=== PATIENT | female | born 1950 | race Caucasian/White ===

== ENCOUNTER → 2017-02-13 | Outpatient (CLI) | payer OTHER ==
[~2017-02-13] MED LIST: ANT25 PO; ASPI81TA21 PO; BND25X PO; DVN80 PO; HYDC25 PO; LRT5 PO; METO25TA3 PO; NORT25CA PO; OMEP40CA PO; SERT100T PO; SIMV40TA2 PO; SNG10 PO; TEMA30CA4 PO; TRAM-10 PO
== END | disposition home or self-care (01) ==
LOC: C.LABMFLN 15:23
PROVIDERS: ATTEND Family Medicine
DX: R19.7 Diarrhea, unspecified (principal)

== ENCOUNTER → 2017-02-14 | Outpatient (CLI) | payer OTHER | END | disposition home or self-care (01) | LOC: C.LABMFLN 08:03 | PROVIDERS: ATTEND Family Medicine | DX: R19.7 Diarrhea, unspecified (principal) ==

== ENCOUNTER → 2017-02-26 | Outpatient (CLI) | payer OTHER ==
--- NOTE | 2017-02-26 14:13 | DIAGNOSTIC IMAGING REPORT ---
LUMBAR SPINE W/O CONTRAST CLINICAL HISTORY: 66 years-old Female presenting with LEFT LUMBOSACRAL RADICULOPATHY, pain radiating down both legs to the knees for many years starting in 2000, lower back pain. TECHNIQUE: Multisequence, multiplanar MR imaging of the lumbar spine was performed without the use of intravenous contrast. IV contrast: None. COMPARISON: Correlation made to plain radiographs from 2015. FINDINGS: Vertebral bodies maintain normal height and alignment. Well-defined T2 hyperintense, T1 hyperintense, fat-containing lesion in the L1 and L3 vertebral bodies consistent with benign hemangiomas. Mild apparent edema in the pedicles of L4, nonspecific without associated inflammatory change in the paraspinal soft tissues and likely degenerative in etiology. Bone marrow signal intensity otherwise normal. Intervertebral disc spaces preserved. Mild degenerative change noted in the lower lumbar spine with facet arthropathy and mild ligamentum flavum thickening. This results in minimal left neural foraminal narrowing at L3-4 and minimal bilateral narrowing at L4-5. No spinal canal narrowing. Spinal cord and cauda equina grossly normal. The terminus of the spinal cord is not well visualized. Nonspecific subcutaneous edema in the posterior soft tissues of the upper lumbar spine. Few benign-appearing lymph nodes noted in the periaortic region. Remaining soft tissues otherwise unremarkable. IMPRESSION: Mild facet arthropathy in the lower lumbar spine with minimal neural foraminal narrowing. Electronically signed by: Delroy Jackson M.D. 02/26/2017 2:11 PM Dictated Date/Time: 02/26/2017 2:05 PM
== END | disposition home or self-care (01) ==
LOC: C.OPENMRI 12:55
PROVIDERS: ATTEND Physical Medicine & Rehabilitation
DX: M54.17 Radiculopathy, lumbosacral region (principal)

== ENCOUNTER → 2017-05-20 | Outpatient (CLI) | payer OTHER | END | disposition home or self-care (01) | LOC: C.RDSM 13:27 | PROVIDERS: ATTEND Physical Medicine & Rehabilitation Sports Medicine | DX: M25.561 Pain in right knee (principal) ==

== ENCOUNTER 2021-05-30 16:53 | Observation (INO) ==
--- NOTE | 2021-05-30 18:28 | Emergency Department Note ---
Impression & Plan Upper abdominal pain ED Provider Note NAME: ANALISA LAWRENCE AGE: 70 SEX: F : 1950 ARRIVES VIA: Ambulance INFORMANT: Patient, ED PROVIDER(S): Dallin Mayfield MD Chief Complaint: Fogginess, abdominal pain HPI: Patient does present with feelings that she is not quite there almost the spaciness or fogginess but denies any lightheadedness. The patient denies vertiginous symptoms. No hearing loss. The patient also does have some upper abdominal pain. The patient states that this has been somewhat chronic but acutely worse in nature. The patient did have a prior history of biliary stent status post removal several months ago with Dr. Baird. Patient denies any fevers or chills. The patient is vaccinated for Covid. Upper abdominal pain is achy and nonradiating. No recent falls or trauma. Patient did not take anything for her symptoms at home. Patient has had some nausea but without vomiting. No diarrhea. Patient denies alcohol tobacco or drug use. ROS: See HPI for pertinent positives and negatives. A total of 10 systems were reviewed and otherwise negative. Past medical history: See below Surgical history: See below Social history: See below Physical Exam: GENERAL: NAD, [wearing a mask,] non-toxic. EYE EXAM: Normal conjunctiva. PERRL, no anisocoria and EOM's grossly intact w/o pain. NECK: Supple, no nuchal rigidity, no adenopathy, non-tender. No signs of meningismus. No carotid bruits appreciated. LUNGS: Clear to auscultation. Normal chest wall mechanics. HEART: NSR, no MRG. ABDOMEN: Abdomen soft, mild diffuse discomfort with greater prominence in the upper abdomen, not peritonitic normo-active bowel sounds, no masses, no rebound or guarding. BACK: No CVA TTP. SKIN: No rashes and no bruising. UPPER EXTREMITIES: Upper extremities are grossly normal. LOWER EXTREMITIES: Grossly normal, no edema. NEURO EXAM: A&O x3, cranial nerves II-XII grossly intact, normal speech, moves all 4 extremities on command w/o issue. Differential diagnoses: Benign positional vertigo, dehydration, hypovolemia, anemia, tumor, infection, hypoglycemia, electrolyte abnormalities, cardiac sources, intracerebral event, toxicologic, neurologic, as well as other pathologies. Course: Patient was seen and evaluated the bedside. Full history physical exam was performed. Imaging Studies: See Below [Cardiac monitoring: An order was placed for continuous cardiac monitoring. The monitor shows a rate of 75 with sinus rhythm.] MDM: Patient was seen due to concern for fogginess as well as abdominal pain. Blood work was obtained. Patient had a mild white count of 12 with a normal H&H. Kidney function is unremarkable. Mild elevation in AST. Lipase is normal. Covid negative. CT did show mild hepatic duct dilatation with some rim enhancement or cholangitis cannot be ruled out. Patient clinically is not confused jaundiced but I did speak with the on-call ceramic tile mechanic Dr. Ayon is that the patient may potentially go home versus inpatient ops. I did discuss this with the patient the patient for to stay for observation and treatment. I did speak with the on-call hospitalist Dr. Red the patient was admitted to the medicine service. 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) Atypical chest pain (04/05/11) Cardiac murmur Chronic cough Deep vein thrombosis R ARM-FROM IV STICK-ON XARELTO FOR 6 MONTHS OR TILL BLOOD CLOT GONE PER PT Diverticular disease REED (dyspnea on exertion) Exposure to mold Fatigue GERD (gastroesophageal reflux disease) Hyperlipidemia Hypertension Hypothyroidism Kidney stones Morbid obesity Osteoarthritis Restless leg syndrome Sleep apnea CPAP-CAN'T TOLERATE DEVICE SOB (shortness of breath) Wheezing Surgical History H/O Achilles tendon repair LEFT H/O neck surgery LYMPH NODE EXCISION-BENIGN H/O wrist surgery NERVE REPAIR-RIGHT History of anesthesia reaction WITH EGD [facility] 02/2018-LOW OXYGEN SATURATION-KEPT LONGER POST OP HX LARYNGEAL SPASMS History of carpal tunnel release R/L History of colonoscopy History of esophagogastroduodenoscopy (EGD) History of tonsillectomy History of tooth extraction Hx of cardiac cath 2012 [facility] 5 CLOTS REMOVED PER PT-NO STENTS Family History Mother Diabetes Father Myocardial infarction Sister Myocardial infarction Social History Smoking Status: Former smoker Tobacco Type: Cigarettes Second Hand Exposure: Yes (FAMILY); Hx Alcohol Use: No Hx Substance Use: No Preferred Language: Czech Communication Ability: Effective Hand Cigar Making Supervisor Required: Voice Beliefs That Will Affect Care: None Current Living Situation: Alone Feels Safe at Home: Yes Assistive Devices: None Allergies Allergies Allergy/AdvReac Type Severity Reaction Status Date / Time Penicillins Allergy Intermediate Hives Verified 05/30/21 21:53 Sulfa (Sulfonamide Allergy Intermediate RASH Verified 05/30/21 21:53 Antibiotics) tetanus toxoid, adsorbed Allergy Intermediate UNKNOWN Verified 05/30/21 21:53 blueberry Allergy Mild RASH Verified 05/30/21 21:53 EATING BLUEBERRIES adhesive Allergy Unknown SKIN Verified 05/30/21 21:53 IRRITATION EKG ELECTRODES celecoxib [From Celebrex] Allergy Unknown STOAMCH Verified 05/30/21 21:53 PAIN Tetanus Vaccines and Toxoid Allergy Unknown Unknown Verified 05/30/21 21:53 Tetracyclines Allergy Unknown STOMACH Verified 05/30/21 21:53 PAIN gabapentin AdvReac Severe Hallucinate Verified 05/30/21 21:53 s doxycycline AdvReac Intermediate NAUSEA Verified 05/30/21 21:53 acetaminophen [From Tylenol] AdvReac Unknown STOMACH Verified 05/30/21 21:53 PAINS enoxaparin [From Lovenox] AdvReac Unknown GENERIC Verified 05/30/21 21:53 FORM-MUSCLE ACHES NSAIDS (Non-Steroidal AdvReac Unknown Stomach Verified 05/30/21 21:53 Anti-Inflamma Problems Home Meds Home Medications Medication Instructions Recorded Confirmed pravastatin 80 mg tablet 80 mg PO HS 12/30/18 05/30/21 ropinirole 1 mg tablet 2 mg PO HS 12/30/18 05/30/21 rivaroxaban 20 mg tablet (Xarelto) 20 mg PO HS 08/06/19 05/30/21 Portable Oxygen ea 02/27/21 05/15/21 oxycodone 10 mg tablet 10 mg PO TID PRN tab 05/01/21 05/30/21 levothyroxine 137 mcg tablet 137 mcg PO QAM 05/30/21 05/30/21 pramipexole 0.125 mg tablet 0.125 mg PO BID 05/30/21 05/30/21 verapamil 180 mg 24 hr 360 mg PO HS 05/30/21 05/30/21 capsule,extended release Previous Rx's Medication Instructions Recorded isosorbide mononitrate 60 mg 60 mg PO QAM #90 tab 04/06/20 tablet,extended release 24 hr nitroglycerin 0.4 mg sublingual 0.4 mg SUBLINGUAL Q5M PRN #25 tab 04/06/20 tablet Portable Oxygen #1 ea 04/25/20 Incentive Spirometer #1 ea 12/07/20 albuterol sulfate 90 mcg/actuation 2 inh INHALATION QID PRN #18 g 12/07/20 aerosol inhaler fluticasone propionate 115 2 inh INHALATION BID #12 g 12/07/20 mcg-salmeterol 21 mcg/actuation HFA inhaler (Advair HFA) Over Night Pulse OX #1 ea 02/27/21 losartan 100 mg tablet 50 mg PO HS #90 tab 02/27/21 metoprolol succinate 25 mg 12.5 mg PO DAILY #45 tab 03/26/21 tablet,extended release 24 hr hydrochlorothiazide 25 mg tablet 50 mg PO DAILY #180 tab 05/15/21 Results & Data (ED) Vital Signs Vital Signs - 24 hr 05/30/21 17:33 05/30/21 18:49 05/30/21 18:51 Temperature 36.7 C Temperature Source Skin Pulse Rate 67 Pulse Rate [Apical] 63 Pulse Rate from SpO2 Sensor Pulse Rhythm Regular Pulse Strength Normal Respiratory Rate 20 16 Respiratory Effort / Characteristics Non-Labored Spontaneous Respiratory Depth Normal Respiratory Pattern Regular Blood Pressure 159/62 H Blood Pressure [Left Arm] 145/95 H Blood Pressure Mean 94 Blood Pressure Mean [Left Arm] 111 Pulse Oximetry 96 97 Oxygen Delivery Method Room Air Room Air Room Air Sepsis Recent Fever Within 48 Hours No Sepsis New/Unexplained Change in Mental Status N/A Sepsis Action Taken by Nursing No Action Required 05/30/21 18:54 05/30/21 19:00 05/30/21 20:00 Temperature Temperature Source Pulse Rate 58 L 57 L 61 Pulse Rate [Apical] Pulse Rate from SpO2 Sensor 58 L 57 L 60 Pulse Rhythm Pulse Strength Respiratory Rate 19 28 H 22 Respiratory Effort / Characteristics Respiratory Depth Respiratory Pattern Blood Pressure 136/73 167/74 H Blood Pressure [Left Arm] Blood Pressure Mean 94 105 Blood Pressure Mean [Left Arm] Pulse Oximetry 94 95 94 Oxygen Delivery Method Sepsis Recent Fever Within 48 Hours Sepsis New/Unexplained Change in Mental Status Sepsis Action Taken by Nursing 05/30/21 21:00 05/30/21 22:00 05/30/21 23:00 Temperature Temperature Source Pulse Rate 64 Pulse Rate [Apical] Pulse Rate from SpO2 Sensor 54 L 57 L 64 Pulse Rhythm Pulse Strength Respiratory Rate 16 23 Respiratory Effort / Characteristics Respiratory Depth Respiratory Pattern Blood Pressure 129/71 184/72 H 169/59 H Blood Pressure [Left Arm] Blood Pressure Mean 90 109 95 Blood Pressure Mean [Left Arm] Pulse Oximetry 92 94 94 Oxygen Delivery Method Sepsis Recent Fever Within 48 Hours Sepsis New/Unexplained Change in Mental Status Sepsis Action Taken by [facility] Medications Current Medication List: was personally reviewed by me Laboratory Data Attestation: I reviewed the patient's lab results. Result diagrams: 05/31/21 05:37 05/31/21 05:37 Lab Results 05/30/21 05/30/21 05/30/21 Range/Units 18:48 18:48 19:40 WBC 12.34 H (4.8-10.8) K/uL RBC 4.44 (4.2-5.4) M/uL Hgb 13.5 (12.0-16.0) g/dL Hct 40.9 (37-47) % MCV 92.1 (80-100) fL MCH 30.4 (25-34) pg MCHC 33.0 (32-36) g/dL RDW Std Deviation 46.6 H (36.4-46.3) fL RDW Coeff of Liza 13.8 (11.5-14.5) % Plt Count 329 (130-400) K/uL MPV 9.5 (7.4-10.4) fL Immature Gran % (Auto) 0.2 % Neut % (Auto) 63.2 % Lymph % (Auto) 27.0 % Falls % (Auto) 8.1 % Eos % (Auto) 1.3 % Baso % (Auto) 0.2 % Neut # (Auto) 7.80 H (1.4-6.5) K/uL Lymph # (Auto) 3.33 (1.2-3.4) K/uL Falls # (Auto) 1.00 H (0.11-0.59) K/uL Eos # (Auto) 0.16 (0-0.5) K/uL Baso # (Auto) 0.02 (0-0.2) K/uL Immature Gran # (Auto) 0.03 H (0.00-0.02) K/uL Sodium 138 (136-145) mmol/L Potassium 4.0 (3.5-5.1) mmol/L Chloride 106 (98-107) mmol/L Carbon Dioxide 26 (21-32) mmol/L Anion Gap 5.0 (3-11) BUN 17 (7-18) mg/dl Creatinine 0.86 (0.6-1.2) mg/dl Est Cr Clr Drug Dosing 68.6 ml/min Est GFR ( Amer) 80.5 ml/min Est GFR (Non-Af Amer) 69.4 ml/min BUN/Creatinine Ratio 20.3 H (10-20) Glucose 82 (70-99) mg/dl Calcium 8.8 (8.5-10.1) mg/dl Total Bilirubin 0.4 (0.2-1) mg/dl AST 76 H (15-37) U/L ALT 46 (12-78) U/L Alkaline Phosphatase 96 (45-117) U/L Total Protein 7.0 (6.4-8.2) gm/dl Albumin 3.0 L (3.4-5.0) gm/dl Globulin 4.0 (2.5-4.0) gm/dl Albumin/Globulin Ratio 0.8 L (0.9-2) Lipase 128 (73-393) U/L Administered Medications Discontinued Medications Aspirin (Aspirin 81 Mg Ectab) 81 mg PO QAM ANGELICA Stop: 06/30/21 08:59 Last Admin: 05/31/21 08:24 Dose: 81 mg Documented by: [id number] Sodium Chloride (Nss 1000ml) 1,000 mls @ 999 mls/hr IV .Q1H1M STA Stop: 05/30/21 19:39 Last Infusion: 05/30/21 21:00 Dose: 0 mls/hr Documented by: [id number] Admin: 05/30/21 18:48 Dose: 999 mls/hr Documented by: [id number] Prochlorperazine (Compazine) 2 mls @ 1 mls/min IV ONE ONE Stop: 05/30/21 19:49 Last Admin: 05/30/21 20:06 Dose: 1 mls/min Documented by: [id number] Lorazepam (Ativan) 0.5 mg in 1 mls @ 1 mls/min IV NOW STA Stop: 05/30/21 22:49 Last Admin: 05/30/21 23:16 Dose: Not Given Documented by: [id number] Potassium Chloride/Sodium Chloride (Normal Saline W/20 Meq Kcl) 20 meq in 1,000 mls @ 60 mls/hr IV .[id number] ANGELICA Stop: 05/31/21 18:36 Last Admin: 05/31/21 08:21 Dose: 60 mls/hr Documented by: [id number] Ioversol (Optiray 320 100ml) 93 ml IV ONCE ONE Stop: 05/30/21 20:19 Last Admin: 05/30/21 20:20 Dose: 93 ml Documented by: [id number] Ioversol (Optiray 320 125ml) 120 ml IV ONCE ONE Stop: 05/31/21 08:38 Last Admin: 05/31/21 08:37 Dose: 120 ml Documented by: [id number] Isosorbide Mononitrate (Isosorbide Falls Extended Rel 60 Mg Tabcr) 60 mg PO QAM ANGELICA Stop: 06/30/21 08:59 Last Admin: 05/31/21 08:23 Dose: 60 mg Documented by: [id number] Levothyroxine Sodium (Levothyroxine Sodium 137 Mcg Tablet) 137 mcg PO DAILYBB ANGELICA Stop: 06/30/21 06:29 Last Admin: 05/31/21 08:23 Dose: 137 mcg Documented by: [id number] Meclizine HCl (Meclizine Hcl 25 Mg Tab) 25 mg PO NOW STA Stop: 05/30/21 19:49 Last Admin: 05/30/21 20:06 Dose: 25 mg Documented by: [id number] Metoprolol Succinate (Metoprolol Succ 25mg Ext Rel Tab) 12.5 mg PO DAILY ANGELICA Stop: 06/30/21 08:59 Last Admin: 05/31/21 08:23 Dose: 12.5 mg Documented by: [id number] Ondansetron HCl (Ondansetron Inj 2 Mg/Ml 2 Ml Vial) 4 mg IV NOW STA Stop: 05/30/21 18:40 Last Admin: 05/30/21 18:48 Dose: 4 mg Documented by: [id number] Perflutren Lipid Microsphere (Perflutren Lipid Microsphere ([employer])) 2 ml IV ONCE ONE Stop: 05/31/21 07:14 Last Admin: 05/31/21 07:14 Dose: 2 ml Documented by: [id number] Pramipexole Dihydrochloride (Pramipexole Dihydrochlo 0.25 Mg Tab) 0.125 mg PO BID ANGELICA Stop: 06/30/21 04:59 Last Admin: 05/31/21 08:24 Dose: 0.125 mg Documented by: [id number] Imaging Data Radiologist's Impression: Abdomen/Pelvis CT 05/30/21 18:[address] WITH IV CONTRAST CT DOSE: 1389.28 mGy.cm HISTORY: Generalized abdominal pain; h/o biliary stent s/p removal TECHNIQUE: Multiaxial CT images of the abdomen and pelvis were performed following the use of intravenous contrast. A dose lowering technique was utilized adhering to the principles of ALARA. COMPARISON STUDY: Abdomen and pelvis CT 01/09/2018. FINDINGS: Stable 3 mm nodule within the left lower lobe. This is likely benign. The right lung base is clear. No pneumoperitoneum. No pneumatosis. No fractures within the visualized osseous structures. Mild skin thickening and subcutaneous trace edema within the lower pannus. The bladder, uterus, bilateral adnexa are within normal limits. No pelvic free fluid. Colonic diverticulosis. No evidence for acute diverticulitis. Normal appendix. No bowel wall thickening or obstruction. No retroperitoneal lymphadenopathy. Normal caliber abdominal aorta. No hepatic or splenic masses. The adrenal glands are unremarkable. There is a single enlarged periportal lymph node which remains unchanged. Therefore, this is likely benign. The main portal vein is patent. There are few punctate left renal calculi. No ureteral calculi. No hydronephrosis. The kidneys enhance normally. Prior cholecystectomy. Small amount of pneumobilia is present. The common hepatic duct is mildly dilated up to 12 mm. Mild enhancement within the common bile duct/common hepatic duct wall. IMPRESSION: 1. Mildly dilated common hepatic duct. This could be due to the patient's postcholecystectomy state. There is also mild enhancement of the wall of the common hepatic duct and common bile duct. This could be due to the history of recent stent removal. An ascending cholangitis could also have a similar appear ance in the appropriate clinical setting. 2. No bowel wall thickening or obstruction. 3. Normal appendix. 4. Colonic diverticulosis. No evidence for acute diverticulitis. 5. Left-sided nephrolithiasis. No ureteral stones. No hydronephrosis. ACT 112: Negative or not required by law. Electronically signed by: Shaan Schaefer M.D. 05/30/2021 8:[address] 05/30/21 18:[address] DOSE: 767.83 mGy.cm HISTORY: nausea, dizzy TECHNIQUE: Multiaxial CT images of the head were performed without the use of intravenous contrast. Automated exposure control was utilized for this study. A dose lowering technique was utilized adhering to the principles of ALARA. Comparison: None. Findings: The paranasal sinuses and mastoid air cells are clear. The calvarium and skull base are intact. The ventricles and sulci are within normal limits. There is no mass, hematoma, midline shift, or acute infarct. Impression: No acute intracranial abnormality. ACT 112: Negative or not required by law. Electronically signed by: Shaan Schaefer M.D. 05/30/2021 8:45 PM Discharge Plan Visit Data Chief Complaint: Dizziness Stated Complaint: dizziness, headache ED Provider: Dallin Mayfield Discharge Problem: Upper abdominal pain Patient Disposition: Admitted As Inpatient Discharge Instructions Interventions: ED Discharge Assessment Last Done: 05/31/21 01:53
[2021-05-30] MEDS ORDERED: ONDANSETRON INJ 2 MG/ML 2 ML VIAL IV STA (18:39)
[2021-05-30] MEDS ORDERED: SODIUM CHLORIDE 0.9% 1000ML 1,000 ML IV STA (18:39)
[2021-05-30 18:59] LABS: Basophils # (auto) 0.02 K/uL (0-0.2); Basophils % (auto) 0.2 %; Eosinophils # (auto) 0.16 K/uL (0-0.5); Eosinophils % (auto) 1.3 %; Hematocrit (blood only) 40.9 % (37-47); Hemoglobin 13.5 g/dL (12.0-16.0); Immature Granulocytes # (auto) 0.03 K/uL (0.00-0.02); Immature Granulocytes % (auto) 0.2 %; Lymphocytes # (auto) 3.33 K/uL (1.2-3.4); Mean Corpuscular Hemoglobin 30.4 pg (25-34); Mean Corpuscular Volume 92.1 fL (80-100); Mean Platelet Volume 9.5 fL (7.4-10.4); Monocytes % (auto) 8.1 %; Neutrophils % (auto) 63.2 %; Platelet Count 329 K/uL (130-400); RDW Coefficient of Variation 13.8 % (11.5-14.5); RDW Standard Deviation 46.6 fL (36.4-46.3); Red Blood Count 4.44 M/uL (4.2-5.4); White Blood Count 12.34 K/uL (4.8-10.8)
[2021-05-30 19:19] LABS: BUN Creatinine Ratio 20.3 (10-20); Calcium 8.8 mg/dl (8.5-10.1); Creatinine Clr Calc Pharmacy 68.6 ml/min; Est GFR (African American) 80.5 ml/min; Est GFR (Non-African American) 69.4 ml/min
[2021-05-30 19:39] LABS: Albumin Globulin Ratio 0.8 (0.9-2); Bilirubin,Total 0.4 mg/dl (0.2-1)
[2021-05-30] MEDS ORDERED: PROCHLORPERAZINE 2 ML IV ONE (19:48)
[2021-05-30] MEDS ORDERED: MECLIZINE HCL 25 MG TAB PO STA (19:48)
[2021-05-30] MEDS ORDERED: OPTIRAY 320 100ml IV ONE (20:18)
--- NOTE | 2021-05-30 20:46 | CT Scan Report ---
HEAD CT NONCONTRAST CT DOSE: 767.83 mGy.cm HISTORY: nausea, dizzy TECHNIQUE: Multiaxial CT images of the head were performed without the use of intravenous contrast. A utomated exposure control was utilized for this study. A dose lowering technique was utilized adheri ng to the principles of ALARA. Comparison: None. Findings: The paranasal sinuses and mastoid air cells are clear. The calvarium and skull base are int act. The ventricles and sulci are within normal limits. There is no mass, hematoma, midline shift, or acute infarct. Impression: No acute intracranial abnormality. ACT 112: Negative or not required by law. Electronically signed by: Shaan Schaefer M.D. 05/30/2021 8:45 PM
--- NOTE | 2021-05-30 21:00 | CT Scan Report ---
ABDOMEN AND PELVIS CT WITH IV CONTRAST CT DOSE: 1389.28 mGy.cm HISTORY: Generalized abdominal pain; h/o biliary stent s/p removal TECHNIQUE: Multiaxial CT images of the abdomen and pelvis were performed following the use of intrave nous contrast. A dose lowering technique was utilized adhering to the principles of ALARA. COMPARISON STUDY: Abdomen and pelvis CT 01/09/2018. FINDINGS: Stable 3 mm nodule within the left lower lobe. This is likely benign. The right lung base i s clear. No pneumoperitoneum. No pneumatosis. No fractures within the visualized osseous structures. Mild skin thickening and subcutaneous trace edema within the lower pannus. The bladder, uterus, bilat eral adnexa are within normal limits. No pelvic free fluid. Colonic diverticulosis. No evidence for a cute diverticulitis. Normal appendix. No bowel wall thickening or obstruction. No retroperitoneal lym phadenopathy. Normal caliber abdominal aorta. No hepatic or splenic masses. The adrenal glands are un remarkable. There is a single enlarged periportal lymph node which remains unchanged. Therefore, this is likely benign. The main portal vein is patent. There are few punctate left renal calculi. No uret eral calculi. No hydronephrosis. The kidneys enhance normally. Prior cholecystectomy. Small amount of pneumobilia is present. The common hepatic duct is mildly dilated up to 12 mm. Mild enhancement with in the common bile duct/common hepatic duct wall. IMPRESSION: 1. Mildly dilated common hepatic duct. This could be due to the patient's postcholecystectomy state. There is also mild enhancement of the wall of the common hepatic duct and common bile duct. This coul d be due to the history of recent stent removal. An ascending cholangitis could also have a similar a ppearance in the appropriate clinical setting. 2. No bowel wall thickening or obstruction. 3. Normal appendix. 4. Colonic diverticulosis. No evidence for acute diverticulitis. 5. Left-sided nephrolithiasis. No ureteral stones. No hydronephrosis. ACT 112: Negative or not required by law. Electronically signed by: Shaan Schaefer M.D. 05/30/2021 8:59 PM
[2021-05-30] MEDS ORDERED: LORazepam 0.5 MG/1 ML VIAL IV STA (22:48)
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
[2021-05-31] MEDS ORDERED: oxyCODONE HCL IR 5 MG TAB (IMMEDIATE RELEASE) PO PRN (00:08)
[2021-05-31] MEDS ORDERED: NSS + 20MEQ KCL 20 MEQ/1,000 ML BAG IV SCH (01:57)
[2021-05-31] MEDS ORDERED: ACETAMINOPHEN 325 MG TAB PO PRN (01:57)
[2021-05-31] MEDS ORDERED: ONDANSETRON INJ 2 MG/ML 2 ML VIAL IV PRN (01:57)
[2021-05-31] MEDS ORDERED: NITROGLYCERIN SL 0.4 MG/TAB TAB SL PRN (01:57)
[2021-05-31] MEDS ORDERED: PHARMACIST DISCHARGE MED REC CONSULT PRN (01:57)
[2021-05-31] MEDS ORDERED: PRAMIPEXOLE DIHYDROCHLO 0.25 MG TAB PO SCH (05:00)
[2021-05-31 06:02] LABS: Basophils # (auto) 0.04 K/uL (0-0.2); Basophils % (auto) 0.3 %; Eosinophils # (auto) 0.28 K/uL (0-0.5); Eosinophils % (auto) 2.3 %; Hemoglobin 13.7 g/dL (12.0-16.0); Immature Granulocytes # (auto) 0.05 K/uL (0.00-0.02); Immature Granulocytes % (auto) 0.4 %; Lymphocytes # (auto) 3.16 K/uL (1.2-3.4); Lymphocytes % (auto) 25.5 %; Mean Corpuscular Hemoglobin 29.7 pg (25-34); Mean Corpuscular Hgb Conc 31.9 g/dL (32-36); Mean Corpuscular Volume 93.3 fL (80-100); Monocytes % (auto) 8.9 %; Neutrophils # (auto) 7.75 K/uL (1.4-6.5); Neutrophils % (auto) 62.6 %; Platelet Count 300 K/uL (130-400); RDW Coefficient of Variation 13.8 % (11.5-14.5); RDW Standard Deviation 47.2 fL (36.4-46.3); Red Blood Count 4.61 M/uL (4.2-5.4); White Blood Count 12.38 K/uL (4.8-10.8)
[2021-05-31 06:14] LABS: Alanine Aminotransferase 44 U/L (12-78); Albumin Level 3.1 gm/dl (3.4-5.0); Aspartate Aminotransferase 49 U/L (15-37); BUN Creatinine Ratio 15.4 (10-20); Blood Urea Nitrogen 14 mg/dl (7-18); Calcium 8.5 mg/dl (8.5-10.1); Carbon Dioxide 25 mmol/L (21-32); Chloride 104 mmol/L (98-107); Creatinine Clr Calc Pharmacy 62.7 ml/min; Est GFR (African American) 72.2 ml/min; Est GFR (Non-African American) 62.3 ml/min; Glucose 106 mg/dl (70-99); Potassium 4.5 mmol/L (3.5-5.1); Sodium 137 mmol/L (136-145)
[2021-05-31 06:21] LABS: Albumin Globulin Ratio 0.7 (0.9-2); Alkaline Phosphatase 108 U/L (45-117); Bilirubin,Total 0.5 mg/dl (0.2-1); Chol HDL Ratio 5; Cholesterol 208 mg/dl (0-200); Globulin 4.3 gm/dl (2.5-4.0); HDL Cholesterol 46 mg/dl; LDL Cholesterol Calculated 121 mg/dl; Total Protein 7.4 gm/dl (6.4-8.2); Triglycerides 204 mg/dl (0-150); Troponin I < 0.015 ng/ml (0-0.045); VLDL Cholesterol 41 mg/dl
[2021-05-31] MEDS ORDERED: LEVOTHYROXINE SODIUM 137 MCG TABLET PO SCH (06:30)
[2021-05-31] MEDS ORDERED: PERFLUTREN LIPID MICROSPHERE (DEFINITY) IV ONE (07:13)
[2021-05-31] MEDS ORDERED: OPTIRAY 320 125ml IV ONE (08:37)
[2021-05-31] MEDS ORDERED: ISOSORBIDE MONO EXTENDED REL 60 MG TABCR PO SCH (09:00)
[2021-05-31] MEDS ORDERED: METOPROLOL SUCC 25MG EXT REL TAB PO SCH (09:00)
[2021-05-31] MEDS ORDERED: ASPIRIN 81 MG ECTAB PO SCH (09:00)
--- NOTE | 2021-05-31 09:07 | CT Scan Report ---
CT angio head w con, CT angio neck with con CLINICAL HISTORY: 70 years-old Female with TIA. Acute strokelike symptoms COMPARISON STUDY: Head CT 05/30/2021 TECHNIQUE: Following the IV administration of Optiray, CT angiogram of the head and neck was performe d from the aortic arch to the skull apex. Images are reviewed in the axial, sagittal, and coronal ramón wendy. 3-D MIPS images are created and assessed. IV contrast was administered without complication. All measurements were obtained according to NASCET criteria. A dose lowering technique was utilized adhe ring to the principles of ALARA. CT DOSE: 618.86 mGy.cm FINDINGS: CT BRAIN: Three-vessel morphology of the thoracic aortic arch. Patency of the innominate and imaged subclavian arteries. The common carotid arteries are patent. Mild atherosclerosis of the carotid bulbs results i n less than 50% stenosis bilaterally. The middle and anterior cerebral arteries are patent. Patent an d codominant vertebral arteries. There is origin of the right posterior cerebral artery. Mild m ultifocal luminal narrowing of the posterior cerebral arteries. No aneurysm, dissection, high-grade s tenosis or arterial occlusion. The cerebral venous sinuses are patent. No abnormal intracranial enhan cement. Lung apices are clear without pneumothorax. 10 mm exophytic nodule of the posterior right thyroid lob e. No acute fracture. Degenerative changes of the cervical spine. IMPRESSION: Mild atherosclerotic vascular disease. No aneurysm, dissection, high-grade stenosis or arterial occlu chano. ACT 112: Negative or not required by law. The above report was generated using voice recognition software. It may contain grammatical, syntax o r spelling errors. Electronically signed by: Kevon Whitney M.D. 05/31/2021 9:05 AM
--- NOTE | 2021-05-31 12:41 | XCELERA ---
[id number]
--- NOTE | 2021-05-31 12:52 | Discharge Summary ---
Date of Service May 31, 2021 Admission HPI Per Admitting Provider The patient is a 70-year-old female with a past medical history including hypertension, restrictive lung disease, chronic respiratory failure with hypoxia, obesity, ARGELIA,, bile duct dilatation, left ureteral stone, RLS, Prinzmetal's angina, opiate dependence, hypothyroidism, hyperlipidemia, depression with anxiety, asthma, anxiety state, acid reflux and arterial thrombosis. She presents with symptoms as noted above. She had no previous episode of the symptoms. The symptoms have improved spontaneously, but she does feel that her vision is still slightly blurred. She had no focal weakness in arms or legs or numbness or tingling in arms or legs. She denies any difficulty with her speech or swallowing. She reports that she has significant family history of stroke, having a sister who early in May of a massive stroke x2. Admission Exam Per Admitting Provider The patient is awake, alert and oriented 3, well developed and well nourished, normocephalic and atraumatic, lying in bed and in no acute distress. HEENT--PERRL, EOMI, mucous membranes and oropharynx normal. Neck--supple. No JVD. No bruits. Thyroid normal, trachea midline, no adenopathy. Heart--normal S1 and S2. No murmurs, rubs or gallops. Lungs--clear bilaterally, no respiratory distress, no accessory muscle use. Abdomen--normal bowel sounds and soft. Nontender. Nondistended. Obese Extremities--no cyanosis or clubbing. No edema. Dermatologic--normal skin turgor, normal color, no abnormal lymph nodes, no rash. Neurologic--cranial nerves II through XII grossly intact. Rheumatologic--normal range of motion. Psychiatric--normal affect. Principal Diagnosis Lightheadedness due to dehydration and polypharmacy Discharge Exam General: obese woman in no acute distress, HEENT--EOMI, somewhat dry mucous membranes Neck--supple, trachea midline, no adenopathy. Heart--RRR, normal S1 and S2 Lungs- CTAB, no respiratory distress Abdomen- Soft, nontender, nondistended Extremities--no cyanosis or edema Dermatologic--normal skin turgor, normal color, no rash Neurologic--cranial nerves intact, 5/5 strength of b/l UE and LE, no sensory deficits Discharge Data Allergies Allergy/AdvReac Type Severity Reaction Status Date / Time Penicillins Allergy Intermediate Hives Verified 05/30/21 21:53 Sulfa (Sulfonamide Allergy Intermediate RASH Verified 05/30/21 21:53 Antibiotics) tetanus toxoid, adsorbed Allergy Intermediate UNKNOWN Verified 05/30/21 21:53 blueberry Allergy Mild RASH Verified 05/30/21 21:53 EATING BLUEBERRIES adhesive Allergy Unknown SKIN Verified 05/30/21 21:53 IRRITATION EKG ELECTRODES celecoxib [From Celebrex] Allergy Unknown STOAMCH Verified 05/30/21 21:53 PAIN Tetanus Vaccines and Toxoid Allergy Unknown Unknown Verified 05/30/21 21:53 Tetracyclines Allergy Unknown STOMACH Verified 05/30/21 21:53 PAIN gabapentin AdvReac Severe Hallucinate Verified 05/30/21 21:53 s doxycycline AdvReac Intermediate NAUSEA Verified 05/30/21 21:53 acetaminophen [From Tylenol] AdvReac Unknown STOMACH Verified 05/30/21 21:53 PAINS enoxaparin [From Lovenox] AdvReac Unknown GENERIC Verified 05/30/21 21:53 FORM-MUSCLE ACHES NSAIDS (Non-Steroidal AdvReac Unknown Stomach Verified 05/30/21 21:53 Anti-Inflamma Problems Consultations 05/30/21 22:03 ED Decision to Admit Stat Ordered Studies 05/30/21 18:39 CT abd pelvis IV con only Stat CT head/brain wo con Stat 05/31/21 08:30 CT angio head w con Routine CT angio neck with con Routine Hospital Course (1) TIA (transient ischemic attack): Pt hospitalized on 05/30 and discharged on 05/31. Lightheadedness/dizziness -Clinical history and unremarkable neurological exam with negative CT/angiograms make TIA less likely. Symptoms most likely due to dehydration over past several days (reduced intake, increased thiazide dose) along with polypharmacy including dopamine agonist. -Normal TTE done today, EF above 70% -Encouraged patient to increase fluid intake to at least 60-80 oz daily, also reduced HCTZ dose form 50 mg to 25 mg after discharge. Pt follows monthly with cardiology, BP management to be addressed as outpatient. -Neurology in agreement patient unlikely to have experienced TIA given constellation of symptoms -Medically stable without any acute issues during hospital stay. (2) Prinzmetal's angina: Prinzmetal's angina/hypertension/arterial thrombosis- continue medications (verapamil, losartan, isosorbide dinitrate, metoprolol) Continue Xarelto (3) HTN (hypertension): See above (4) Arterial thrombosis: See above (5) ARGELIA (obstructive sleep apnea): CPAP at bedtime as needed (6) Restless legs syndrome (RLS): Continue pramipexole (7) Hypothyroidism: Continue levothyroxine 137 mcg daily (8) Hyperlipidemia: Continue simvastatin 80 mg daily (9) Asthma: Continue Advair Diskus (10) Opiate dependence: Continue oxycodone as needed as outpatient Total Time Total Time Spent Total Time Spent (In Minutes): <30 Discharge Plan Discharge Items Patient Disposition: Home - Self-Care Reason For Visit: TIA Discharge Diagnosis: Presyncopal symptoms Activity: Per Instructions section Non-emergency contact: Primary Care Provider and Receiver Dispatcher Call non-emergency contact if: you have any medication questions and your symptoms worsen Follow-up/Referrals: Perri Manzano CRNP [Primary Care Provider] - Diet: Heart Healthy and Low Fat Addtl Attending Provider Instructions: You were admitted to the hospital for lightheadedness/dizziness. You were evaluated for potential stroke/transient ischemic attack (also known as mini- stroke). You had no neurological symptoms such as weakness, numbness or vision change. Also, our imaging did not reveal any evidence of stroke. Your symptoms were most likely due to your own dehydration over the last few days along with the increased dose of your hydrochlorothiazide, along with being on multiple medications which are known to cause lightheadedness/dizziness as side effects (including Mirapex). It is very important you increase your fluid intake to at least 8 tall glasses of water per day. You will also be discharged on your original 25 mg dose of hydrochlorothiazide given your recent dehydration. When you follow up with your electrifier operator, adjustments can be made to your blood pressure medications. A discharge summary will be sent to your primary care physician and electrifier operator to ensure continuity of care. Please bring this discharge summary with you to your next office appointment so that your provider can review it at that time. Follow-up appointments: Make a follow-up appointment with your PCP and electrifier operator within the next week. It is very important that you follow up with them shortly after discharge from the hospital. Medications: Your medication list has been reviewed and reconciled upon discharge to ensure accuracy and continuity of care. An updated list of all your medications is included with your hospital discharge paperwork. Please review this list closely, and make note of any changes. You will be restarted on your original dose of hydrochlorothiazide 25 mg once a day. Cut your 50 mg tablet in half and take half a tablet once a day Take your medications as instructed; do not skip a dose of your medicines. Make sure all of your doctors know every medicine you are taking (including sqdv-jso-slparqe medicines, vitamins, and supplements). Call your primary care provider before taking any new medicines (including ejad-eae-fxedqsw medicines, vitamins, and supplements), because some of these may interact with your current medications, or may make your symptoms worse. Tell your primary care provider if you cannot afford your medications. CONTACT YOUR PRIMARY CARE PROVIDER if you experience any of the following: Lightheadedness Dizziness Difficulty following your treatment plan, or difficulty taking medications CALL 911 OR GO TO THE EMERGENCY DEPARTMENT if you experience any of the following: Sudden, severe abdominal pain or nausea/vomiting Severe chest pain, or chest pain that radiates (moves) to your jaw or arm Sudden, severe shortness of breath or difficulty breathing Sudden vision change, weakness, numbness or severe headache Thank you for allowing us to participate in your care. Pending Studies at Discharge: No Stand-Alone Forms: My [facility] [place], Smoking Cessation Medications and DC Order Prescriptions: Continued (DME) Portable Oxygen Misc See Rx Instructions .MEDSUPPLY Qty: 1 RF: 0 (DME) Over Night Pulse OX Misc See Dose Instructions .ROUTE .MEDSUPPLY Qty: 1 RF: 0 metoprolol succinate 25 mg tablet extended release 24 hr 12.5 mg PO DAILY Qty: 45 RF: 3 hydrochlorothiazide 25 mg tablet 50 mg PO DAILY Qty: 180 RF: 3 (DME) Portable Oxygen Misc See Rx Instructions .MEDSUPPLY RF: 0 losartan 100 mg tablet 50 mg PO HS Qty: 90 RF: 3 isosorbide mononitrate 60 mg tablet extended release 24 hr 60 mg PO QAM Qty: 90 RF: 3 nitroglycerin 0.4 mg tablet, sublingual 0.4 mg sublingual Q5M PRN (Reason: Chest Pain) Qty: 25 RF: 0 Advair HFA 115-21 mcg/actuation HFA aerosol inhaler 2 inh inhalation BID Qty: 12 RF: 5 (DME) Incentive Spirometer Misc See Rx Instructions .MEDSUPPLY Qty: 1 RF: 0 albuterol sulfate 90 mcg/actuation HFA aerosol inhaler 2 inh inhalation QID PRN (Reason: Wheezing) Qty: 18 RF: 3 pravastatin 80 mg tablet 80 mg PO HS RF: 0 ropinirole 1 mg tablet 2 mg PO HS RF: 0 oxycodone 10 mg tablet 10 mg PO TID PRN (Reason: Pain) RF: 0 Xarelto 20 mg Tablet 20 mg PO HS RF: 0 verapamil 180 mg capsule,ext rel. pellets 24 hr 360 mg PO HS RF: 0 levothyroxine 137 mcg tablet 137 mcg PO QAM RF: 0 pramipexole 0.125 mg tablet 0.125 mg PO BID RF: 0 Discharge Orders: Discharge Order (Routine); Ordered 05/31/21 Ordered By: Lorenzo White Admission Data Admit Date/Time: 05/30/21 23:32 Attending Provider: Lemuel German Admit Provider: Varinder Renteria Primary Care Provider: Perri Manzano Other Providers: Varinder Renteria Other Interventions: Discharge Summary Assessment (RN) Last Done: 05/31/21 14:16 Supervising Physician Co-Signing Physician Notes I personally examined the patient and verified all erwin points of history and exam, discussed case, and agree with decision making with Dr White Feeling better and feeling up to going home. Did not have any focal neuro deficitsjust a lightheaded dizziness feeling like she was going to pass out that self resolved. Recently she had several blood pressure medicines increased, and she spikes she does not drink a lot. In clarifying her med list, she is not on ropinirole, just Mirapex, and questionably even thatbut definitely not both. Vitals noted, in general she is awake and alert pleasant no distress. HEENT normocephalic atraumatic mucous membranes moist. Breathing unlabored no accessory muscle use good effort. Skin shows no rashes no pallor or icterus. Neuro without focal deficits. Presyncopal symptomsfortunately no worry signs or symptoms, echocardiogram grossly normal although appear to be a somewhat difficult study. Stable for home. For now reduce hydrochlorothiazide back to 25 mg, and encourage hydration. Has a blood pressure cuff at home, uses it frequentlywould have her continue to do this and then follow-up with PCP/cardiology for ongoing titration of blood pressure medicines if need be. Discussed role of exercise in blood pressure management as rory notes she did just recently get an exercise bike that allows her to use arms or legs. Again, fortunately no worry features, and to clarify this did not appear to be TIA or stroke with hindsight. Stable for home. Otherwise as above. Resident Activity Tracking Resident Involvement: Resident Care Provided Care Provided: Adult Hospital Medicine
[2021-05-31] MEDS ORDERED: STROKE PATIENT DISCHARGE STA (13:43)
[2021-05-31 13:48] LABS: Estimated Average Glucose 146 mg/dl; Hemoglobin A1C 6.7 % (4.5-5.6)
[2021-05-31] MEDS ORDERED: RIVAROXABAN 20 MG TAB PO SCH (16:30)
--- NOTE | 2021-05-31 18:10 | Billing Data ---
Date of Service May 31, 2021 Coding Level of Care Code 04262 OBS Care - Discharge
[2021-05-31] MEDS ORDERED: PRAVASTATIN SOD 40 MG TAB PO SCH (21:00)
[2021-05-31] MEDS ORDERED: LOSARTAN POTASSIUM 50 MG TAB PO SCH (21:00)
[2021-05-31] MEDS ORDERED: VERAPAMIL HCL 180 MG TABCR PO SCH (21:00)
[2021-05-31] MEDS ORDERED: rOPINIRole HCL 2 MG TABLET PO SCH (21:00)
== END 2021-05-31 14:33 | disposition home or self-care (01) ==
LOC: EDINP 16:53 → ED 16:53 → SUATTDRO 23:32 → EDINP 05-31 01:53

== ENCOUNTER 2023-12-09 05:29 | Observation (INO) ==
--- NOTE | 2023-10-20 13:06 | Anesthesiology Consultation ---
Date of Service October 20, 2023 Assessment & Plan (1) Encounter for pre-operative examination: - Check BSG AM DOS - Infectious disease screening: Per assessment on 10/20/23: No known infectious disease contacts or current infectious disease symptoms. No noted recent Covid positive test result. - Cardiology visit (09/26/23): "Mrs. Mcmahan is a 73-year-old female with a history of long-standing Hypertension, Dyslipidemia, Grade I LV Diastolic Dysfunction, Type 2 Diabetes Mellitus, Hypothyroidism, Restless Leg Syndrome, Anxiety Disorder, Asthma, Nocturnal Hypoxemia, Sleep Apnea, Obesity, Prinzmetal's Angina secondary to Coronary Artery Spasm (as documented on Cardiac Catheterization 2010), Pericardial Fat Pad, Osteoarthritis, and a Right Knee Torn Meniscus who presents today for Preoperative Cardiologic Evaluation. She is scheduled to undergo right knee arthroscopy with Dr. Uriostegui in October 2023.. Based on her functional status without anginal symptoms, normal LV systolic function on her Echocardiogram November 2022, and her EKG today shows normal sinus rhythm at 80 bpm with low-voltage QRS. When compared to prior tracing from 11/20/22; Non-specific T wave abnormality is no longer present -- Patient is an acceptable surgical risk to proceed with right knee arthroscopy as planned.. She is aware that she will hold Xarelto x 3 days leading up to this procedure.. There is no need for further ischemic workup at this time." Chart Review Chart Review: Acceptable Risk for Surgery and Patient NOT seen in Pre Admission Testing History Surgery Operation Date: 11/04/23 07:00 Proposed Procedures p Right Knee Arthroscopy, Meniscal Debridement, Chondroplasty, Loose Body Removal, Left Knee Cortisone Injection - Ross Syed Uriostegui MD Height/Weight Height: 5 ft 2 in Weight: 99.79 kg Allergies Allergy/AdvReac Type Severity Reaction Status Date / Time Penicillins Allergy Intermediate Hives Verified 10/20/23 10:49 Sulfa (Sulfonamide Allergy Intermediate Rash Verified 10/20/23 12:59 Antibiotics) tetanus toxoid, adsorbed Allergy Intermediate Swollen, Verified 10/20/23 12:59 painful lump blueberry Allergy Mild Rash Verified 10/20/23 12:59 adhesive Allergy Unknown Skin Verified 10/20/23 12:59 irritation (EKG electrodes) celecoxib [From Celebrex] Allergy Unknown Stomach Verified 10/20/23 12:59 pain Tetanus Vaccines and Toxoid Allergy Unknown Swollen, Verified 10/20/23 12:59 painful lump Tetracyclines Allergy Unknown Stomach Verified 10/20/23 12:59 pain gabapentin AdvReac Severe Hallucinati Verified 10/20/23 12:59 ons doxycycline AdvReac Intermediate Nausea Verified 10/20/23 12:59 acetaminophen [From Tylenol] AdvReac Unknown Stomach Verified 10/20/23 12:59 pains enoxaparin [From Lovenox] AdvReac Unknown Muscle Verified 10/20/23 12:59 aches (generic form) NSAIDS (Non-Steroidal AdvReac Unknown Stomach Verified 10/20/23 10:49 Anti-Inflamma Problems fluticasone AdvReac Cough Verified 10/20/23 12:59 [From Advair Diskus] salmeterol AdvReac Cough Verified 10/20/23 12:59 [From Advair Diskus] Medications Home Medications Medication Instructions Recorded Confirmed Last Taken rivaroxaban 20 mg tablet (Xarelto) 20 mg PO HS 08/06/19 10/20/23 05/29/21 Incentive Spirometer #1 ea 12/07/20 09/18/23 Unknown oxycodone 10 mg tablet 10 mg PO TID PRN Pain 05/01/21 10/20/23 Unknown pramipexole 0.125 mg tablet 0.125 mg PO BID 05/30/21 10/20/23 05/30/21 fluticasone propionate 50 1 spray intranasal DAILY PRN 01/11/22 10/20/23 Unknown mcg/actuation nasal allergy symptoms spray,suspension (Allergy Relief (fluticasone)) ondansetron HCl 4 mg tablet 4 mg PO Q8H PRN nausea and 05/30/22 10/20/23 Unknown vomiting #15 tabs losartan 100 mg tablet 100 mg PO HS #90 tabs 10/21/22 10/20/23 Unknown hydrochlorothiazide 25 mg tablet 25 mg PO QPM PRN SWELLING 03/06/23 10/20/23 Unknown verapamil 180 mg 24 hr 360 mg (2 x 180 mg) PO HS #180 caps 03/06/23 10/20/23 Unknown capsule,extended release metoprolol succinate 25 mg 12.5 mg (1/2 x 25 mg) PO QPM #45 03/27/23 10/20/23 Unknown tablet,extended release 24 hr tabs doxazosin 2 mg tablet 2 mg PO DAILY #90 tabs 03/31/23 10/20/23 Unknown isosorbide mononitrate 60 mg 60 mg PO QPM 04/08/23 10/20/23 Unknown tablet,extended release 24 hr nebulizers (Aeroneb Go Nebulizer) #1 ea 04/08/23 09/18/23 Unknown nebulizers (Aeroneb Go Nebulizer) #1 ea 04/08/23 09/18/23 Unknown albuterol sulfate 90 mcg/actuation 2 inh inhalation QID PRN Wheezing 04/14/23 10/20/23 Unknown aerosol inhaler #3 Inhalers arformoterol 15 mcg/2 mL solution 2 ml inhalation DAILY #360 mL 04/14/23 10/20/23 Unknown for nebulization (Ander) montelukast 10 mg tablet 10 mg PO QPM #90 tabs 04/14/23 10/20/23 Unknown (Singulair) nitroglycerin 0.4 mg sublingual 0.4 mg sublingual Q5M PRN Chest 05/12/23 10/20/23 Unknown tablet Pain #25 tabs budesonide 0.25 mg/2 mL suspension 0.25 mg (2 mL) inhalation BID #360 05/26/23 10/20/23 Unknown for nebulization mL levothyroxine 125 mcg capsule 125 mcg PO HS 09/18/23 10/20/23 Unknown cholecalciferol (vitamin D3) 125 125 mcg PO DAILY 09/26/23 10/20/23 Unknown mcg (5,000 unit) capsule pravastatin 80 mg tablet 80 mg PO HS 09/26/23 10/20/23 Unknown vitamin B complex (B 1 tab PO DAILY 09/26/23 10/20/23 Unknown Complex-Vitamin B12 tablet) albuterol sulfate 2.5 mg/3 mL 2.5 mg (3 mL) inhalation Q6H PRN 10/20/23 10/20/23 Unknown (0.083 %) solution for nebulization shortness of breath or wheezing #360 mL ascorbic acid 30 mg-collagen, 1 tab PO HS 10/20/23 10/20/23 Unknown hydrolyzed 833.3 mg tablet (Collagen Skin Renewal) Past Medical History Medical History Anxiety Arterial thrombosis Hx, [address] Luna Cardiac murmur Echo 11/2022: No significant valvular disease Chronic cough Deep vein thrombosis LUE r/t IV cath (entered into [facility] 2019) Reason for Xarelto Diabetes Previously on Metformin, currently diet-managing Diverticular disease Fatigue GERD (gastroesophageal reflux disease) Hyperlipidemia Hypertension Hypothyroidism Kidney stones Hx Morbid obesity Osteoarthritis Restless leg syndrome Restrictive lung disease Follows with Dr. Luna Sleep apnea CPAP Past Family History Family History Mother Diabetes Father Myocardial infarction Sister Myocardial infarction Past Surgical History Surgical History H/O Achilles tendon repair Left H/O neck surgery Lymph node excision (benign) H/O wrist surgery Nerve repair (right) History of anesthesia reaction Low O2 sat after EGD (2018, [facility]), monitored longer post-op Hx laryngeal spasms (2012) History of carpal tunnel release R/L History of colonoscopy History of esophagogastroduodenoscopy (EGD) History of tonsillectomy History of tooth extraction Hx of cardiac cath 2010- [place] [facility] [place] "Prinzmetal's Angina secondary to Coronary Artery Spasm (as documented on Cardiac Catheterization 2010)" Hx of cholecystectomy Hx of dilation and curettage Hx of endoscopic retrograde cholangiopancreatography 09/2023- [facility] Social History Smoking Status: Former smoker Do You Dip or Chew Tobacco: No Smoking End Date: quit 1979 Hx Alcohol Use: No Hx Substance Use: No substance use type: does not use Testing Laboratory Results 09/26/23 WBC 10.00 H/H 12.5/39.0 PLATELETS 319 SODIUM 142 POTASSIUM 4.2 CHLORIDE 106 CO2 22 BUN 15 CREATININE 0.8 GLUCOSE 121 HGBA1C 6.9% TSH 1.59 Electrocardiogram Date: 09/26/23 NSR at 80bpm. Low voltage QRS. Chest X-Ray Date: 04/17/23 Lungs are well-expanded/hyperaerated without demonstrable pneumothorax or pleural effusion. Mild partial elevation/eventration left hemidiaphragm again seen. No new focal parenchymal consolidation. No pulmonary vascular congestion. Chronic prominence of peribronchial density can reflect airways disease. Surgical clips in RUQ. Cardiac silhouette enlarged. Echocardiogram Date: 11/15/22 LVEF 63%. LV wall motion is normal. No significant valvular disease. There is increased tissue density in the region of the pericardium suggestive pericardial fat. Stress Test Date: 11/28/17 Type: DSE Negative DSE/stress ECG for ischemia at 81% MPHR. Rest Echo: Mild cLVH. No significant valvular disease.
[~2023-12-09 05:29] MED LIST changes: -ANT25 PO; -ASPI81TA21 PO; -BND25X PO; -DVN80 PO; -HYDC25 PO; +LACTATED RINGER'S 1,000 ML IV SCH; -LRT5 PO; -METO25TA3 PO; -NORT25CA PO; -OMEP40CA PO; -SERT100T PO; -SIMV40TA2 PO; -SNG10 PO; -TEMA30CA4 PO; -TRAM-10 PO; +ceFAZolin 2000MG 2,000 MG/15 ML SYR IV SCH
[2023-12-09] MEDS: LR 15ML/HR IV SCH (06:24)
[2023-12-09] MEDS: LACTATED RINGER'S 1,000 ML IV SCH (06:25)
[2023-12-09] MEDS ORDERED: ROCURONIUM BROMIDE 10 MG/ML 5 ML VIAL IV ONE ×2 (06:39→08:06)
[2023-12-09] MEDS ORDERED: ONDANSETRON INJ 2 MG/ML 2 ML VIAL ONE (06:39)
[2023-12-09] MEDS ORDERED: DEXAMETHASONE SOD INJ 4 MG/ML VIAL ONE (06:39)
[2023-12-09] MEDS ORDERED: fentaNYL citrate PF 100 MCG/2 ML VIAL ONE (06:39)
[2023-12-09] MEDS ORDERED: PROPOFOL IV EMULSION 10 MG/ML 20 ML VIAL IV ONE (06:39)
[2023-12-09] MEDS ORDERED: MIDAZOLAM HCL 1 MG/ML 2ML VIAL ONE (06:40)
--- NOTE | 2023-12-09 06:41 | History & Physical Bridge Note ---
Date of Service December 09, 2023 History & Physical Bridge Note I have examined the patient, reviewed the History & Physical and in the interval since the performance of the History & Physical I have noted the following changes of clinical significance: no changes noted
[2023-12-09] MEDS ORDERED: ePHEDrine sulfate 50 MG/ML AMP IV PRN (06:45)
[2023-12-09] MEDS ORDERED: ATROPINE SULFATE 0.1 MG/ML 10ML SYR IV PRN (06:45)
[2023-12-09] MEDS ORDERED: ONDANSETRON INJ 2 MG/ML 2 ML VIAL IV PRN ×2 (06:45→09:03)
[2023-12-09] MEDS ORDERED: PROMETHAZINE HCL 6.25 MG in SODIUM CHLORIDE 0.9% 50 ML IV PRN (06:45)
[2023-12-09] MEDS ORDERED: ePHEDrine sulfate 50 MG/ML AMP ONE (07:34)
[2023-12-09] MEDS ORDERED: PHENYLEPHRINE HCL 10 MG/ML VIAL ONE (07:40)
[2023-12-09] MEDS ORDERED: SUGAMMADEX SODIUM 200 MG/2 ML VIAL IV ONE (07:56)
[2023-12-09] MEDS: ceFAZolin 2000MG 2,000 MG/15 ML SYR IV SCH ×2 (07:57→17:12)
[2023-12-09] MEDS: LIDOCAINE 1%/EPINEPHRINE 1:100,000 20 ML VIAL ONE (07:58)
[2023-12-09] MEDS: BUPIVACAINE 0.5 % 5 MG/1 ML MPF 30ML VIAL ONE (07:58)
[2023-12-09] MEDS: EPINEPHrine INJ 1 MG/ML AMP ONE (07:59)
[2023-12-09] MEDS: EPINEPHrine HCL INJ 10 MG/10 ML VIAL ONE (08:00)
[2023-12-09] MEDS: methylPREDNISolone acetate 80 MG/ML VIAL ONE (08:00)
--- NOTE | 2023-12-09 08:29 | Post Operative Brief Note ---
Immediate Post Op Note v1 Date of Surgery December 09, 2023 Pre & Post Diagnosis Operation Date: 12/09/23 07:00 Pre-Op Diagnosis: Right Knee Meniscus Tear, chondromalacia; Right hip Osteoarthritis Post-Op Diagnosis: Right Knee Meniscus Tear, chondromalacia, and synovitis; Right hip Osteoarthritis I identified the patient and participated in the time-out.: Yes Procedure Operation Date: 12/09/23 07:00 Actual Procedures p Right Knee Arthroscopy, Meniscal Debridement, Chondroplasty, synovectomy Right Hip Cortisone Injection(Right) - Ross Uriostegui MD Surgeon Ross Uriostegui MD Linux Kernel Developer Yakelin Santana PA-C (No fellow avail) Estimated Blood Loss 2 Findings Consistent with Post-Op Diagnosis Fluids 800 cc Anesthesia Type General Complications none
--- NOTE | 2023-12-09 08:30 | Operative Report ---
Post Operative Report Pre & Post Diagnosis Operation Date: 12/09/23 07:00 Pre-Op Diagnosis: Right Knee Meniscus Tear, chondromalacia; Right hip Osteoarthritis Post-Op Diagnosis: Right Knee Medial & Lateral Meniscus Tears, chondromalacia: Patellofemoral & Medial compartment, LTP, and synovitis; Right hip Osteoarthritis I identified the patient and participated in the time-out.: Yes Procedure Operation Date: 12/09/23 07:00 Actual Procedures p Right Knee Arthroscopy, Chondroplasty: Patella, Medial compartment, LTP; partial medial and lateral meniscectomies Right Hip Cortisone Injection(Right) - Ross Uriostegui MD Surgeon Ross Uriostegui MD Barbed Wire Machine Operator Yakelin Santana PA-C (No fellow avail) Estimated Blood Loss 2 Findings See Below The right knee was examined under anesthesia. Range of motion was 0-125 degr ees. Ligamentous examination exhibited: stable Jessie, posterior drawer, varus and valgus stress at 0 & 30 degrees. ARTHROSCOPIC FINDINGS: There was significant synovitis in the suprapatellar pouch. 1) PATELLOFEMORAL JOINT: The articular cartilage of the Patella had Outerbridge grade III changes. The articular cartilage of the Trochlea had grade II-III changes. 2) GUTTERS: No loose bodies, there was synovitis. 3) MEDIAL COMPARTMENT: The articular cartilage of the femur had grade II-III changes diffusely. The articular cartilage of the Tibia had grade II changes. The medial meniscus had a degenerative tear posteriorly that extended to the capsule. 4) ACL/PCL: They were both visualized and probed to be intact. 5) LATERAL COMPARTMENT: The lateral compartment was then entered in a f [id number] position. The articular cartilage of the femur grade I changes. The articular cartilage of the Tibia grade II changes anterior lateral, small area 2 x 2 mm. The lateral meniscus had a degenerative tear at the posterior horn. Fluids 800 cc Specimens n/a Anesthesia Type General Complications none Indications This is a 73-year-old female who has clinical and MRI findings consistent with m eniscus tear and chondromalacia and x-ray findings of right hip OA. I recommended that a right knee arthroscopy be performed with meniscus debridement, chondroplasty, and right hip cortisone injection. The patient understands the risks of surgery, which include but not limited to: bleeding, infection, re-operation, damage to nerves and arteries, continued knee pain, progression of OA, DVT, and a 0.5-5% risk of becoming worse after surgery. The patient understands all of these instructions and explanations, all of his questions have been satisfactorily addressed and the patient has elected to proceed. Informed consent was signed. Description of Procedure Yakelin Santana PA-C is assisting with positioning and closure due to fellow not available. Procedure: The patient was taken to the Operating Room and placed in the supine position after general anesthetic was administered. My initials and a multidisciplinary time-out were used to identify the correct patient and the right leg as the operative limb prior to preforming the hip injection and again after draping for the knee arthroscopy. Prior to the incision, 2 grams of intravenous Ancef was given. The right hip was addressed first and the greater trochanter was marked. Fluoroscopy was brought in to ensure proper starting point anterior to the greater trochanter. The area was prepped with alcohol wipe. The needle was placed just anterior to the greater trochanter aiming 45 degrees cephalad and with the needle parallel to the floor. The needle was directed to the femoral neck and within the joint capsule. Then 1ml 1% Lidocaine with epi, 2 ml 0.5% Marcaine, and 2 ml 40 mg Depomedrol were easily injected into the right hip joint. The needle was removed and a band aid was placed overtop. The right leg was then prepped and draped in a standard sterile fashion. The right knee was then injected with 20cc of a 50:50 mix of 1% Lidocaine with epi and 0.5% Marcaine plain using the superolateral portal.The anterolateral, anteromedial, and superolateral portals were injected with the 50:50 mixture noted above, for a total of 10cc, in the standard fashion. An anterolateral ar throscopic portal was established with an 11-blade. Next, the arthroscope was introduced into the knee. A diagnostic arthroscopy commenced and both the superolateral and anteromedial portals were established under direct visualization using a spinal needle followed by an 11 blade in the standard fashion. The above findings were observed during the diagnostic arthroscopy. The synovitis in the suprapatellar pouch, and gutters as well as the anterior fat pad were debrided as they were encounter with mechanical shaver and [place].The articular cartilage damage from the patellofemoral compartment, medial compartment, and LTP were debrided back to stable margins as they were encountered with mechanical shaver. The Medial meniscus tear was evaluated and found to be irreparable and was debrided back to stable margin with hand punches, and mechanical shaver and was probed after and found to be stable. The Lateral meniscus tear was evaluated and found to be irreparable and was debrided back to stable margin with mechanical shaver and was probed after and found to be stable.The knee was copiously irrigated. The arthroscopic instruments were then removed. The portals were closed with 3-0 Prolene in a standard fashion. The wound was dressed with Xeroform gauze, sterile gauze, ABDs, sterile Webril, and a foot to thigh Julio C bandage. The patient was then transferred to the Recovery Room in stable condition. The sponge and needle counts were correct. Post-op Instructions: The patient will be WBAT. The patient may remove the operative dressing on Post-Op Day #2 and apply Band-Aids to the wounds. The patient may shower in 72 hours and is to wear the ROBERTA for 2 weeks on the operative limb. The patient is to use the pain medicine as needed and take the NSAIDs for 2 weeks. The patient was also given a handout for home quad strengthening and seated self-assisted ROM exercises, which they may begin tomorrow. The patient was given a prescription for PT and is scheduled for an appointment next week. The patient is to follow up in the office, in 10-14 days. I attest to the content of the Intraoperative Record and any orders documented therein. Any exceptions are noted below.
--- NOTE | 2023-12-09 08:43 | Operative Report ---
Post Operative Report Pre & Post Diagnosis Operation Date: 12/09/23 07:00 Pre-Op Diagnosis: Right Knee Meniscus Tear; Right Hip Osteoarthritis, Chondromalacia Post-Op Diagnosis: Right Knee Meniscus Tear; Right Hip Osteoarthritis, Chondromalacia I identified the patient and participated in the time-out.: Yes Procedure Operation Date: 12/09/23 07:00 Actual Procedures p Right Knee Arthroscopy, Chondroplasty, Medial and Lateral meniscectomy, Synovectomy, Right Hip Cortisone Injection - Ross Uriostegui MD Surgeon Ross Uriostegui M.D. Consultant Technology Yakelin Santana PA-C (No fellow avail) Estimated Blood Loss 2 Findings Consistent with Post-Op Diagnosis Specimens None Anesthesia Type General Description of Procedure Patient was taken to the operating room and placed under general anesthesia. Time out was performed. She was given 2 g of IV Ancef for surgical prophylaxis. She was prepped and draped in routine sterile fashion. I was present during the entire case, please see Dr. Uriostegui's operative report for further detail. Patient was awakened and transferred to the recovery room in stable condition. I attest to the content of the Intraoperative Record and any orders documented therein. Any exceptions are noted below.
[2023-12-09] MEDS: fentaNYL citrate PF 100 MCG/2 ML VIAL IV PRN (08:48)
[2023-12-09] MEDS: HYDROmorphone INJ 2 MG/ML SYR/VIAL IV PRN (08:59)
[2023-12-09] MEDS ORDERED: MoRPHine SULFATE 4 MG/ML 1 ML CARP\\VIAL IV PRN (09:03)
[2023-12-09] MEDS ORDERED: MoRPHine SULFATE 2 MG/ML CARP IV PRN (09:03)
--- NOTE | 2023-12-09 09:03 | Fluoroscopy Report ---
FL hip RT 1V CLINICAL HISTORY: RT HIP INJECTION TECHNIQUE: 1 views were obtained with the C-arm in the OR with the above procedure. Total fluoroscopy time was 8.1 seconds. Radiation dose was 153 mGy. Comparison: Comparison is made to CT abdomen pelvis 06/28/2022 FINDINGS/IMPRESSION: Intraoperative images were obtained of a right hip injection. Please correlate with intraoperative fluoroscopy and operative report. ACT 112: Negative or not required by law. Electronically signed by: Nikos Eli M.D. 12/09/2023 9:02 AM
[2023-12-09] MEDS ORDERED: oxyCODONE HCL IR 5 MG TAB (IMMEDIATE RELEASE) PO PRN (09:05)
[2023-12-09] MEDS: ALBUT/IPRATROP 3MG/0.5MG NEB 3 ML VIAL NEB STA ×2 (09:23→11:29)
[2023-12-09] MEDS: ALBUT/IPRATROP 3MG/0.5MG NEB 3 ML VIAL ONE (09:25)
--- NOTE | 2023-12-09 10:02 | Anesthesiology Progress Note ---
Date of Service December 09, 2023 Anesthesia Post Procedure Vital Signs Vital Signs: Temp Pulse Resp BP Pulse Ox O2 Del Method O2 Flow Rate 12/09/23 09:50 68 16 119/48 L 90 Room Air 12/09/23 09:40 69 14 105/54 L 91 Room Air 12/09/23 09:30 65 17 121/60 96 Oxymask 2 12/09/23 09:20 71 17 127/61 95 Oxymask 2 12/09/23 09:10 36.4 C L 67 16 140/56 L 91 Oxymask 2 12/09/23 09:00 73 16 142/60 H 94 Oxymask 5 12/09/23 08:50 84 18 157/64 H 93 Oxymask 5 12/09/23 08:41 36.2 C L 88 14 166/68 H 95 Oxymask 5 12/09/23 05:58 36.7 C 87 20 204/72 H 95 Room Air Pain Intensity Right Knee: Pain Intensity: 4 Transfer of Care Handoff Completed per policy Notes Mental Status: alert / awake / arousable Patient Amnestic to Procedure: Yes Nausea / Vomiting: adequately controlled Pain: adequately controlled Airway Patency, RR, SpO2: stable & adequate BP & HR: stable & adequate Hydration State: stable & adequate Anesthetic Complications: no major complications apparent and Pt Satisfied with anesthetic care
--- NOTE | 2023-12-09 12:05 | Anesthesiology Progress Note ---
Date of Service December 09, 2023 Anesthesia Post Procedure Vital Signs Vital Signs: Temp Pulse Resp BP Pulse Ox O2 Del Method O2 Flow Rate 12/09/23 11:29 67 18 92 Nasal Cannula 1 12/09/23 11:00 36.6 C 66 18 148/62 H 91 Nasal Cannula 1 12/09/23 10:30 36.6 C 69 18 148/62 H 92 Nasal Cannula 1 12/09/23 10:00 36.5 C 69 18 122/59 L 90 Room Air 12/09/23 09:50 68 16 119/48 L 90 Room Air 12/09/23 09:40 69 14 105/54 L 91 Room Air 12/09/23 09:30 65 17 121/60 96 Oxymask 2 12/09/23 09:20 71 17 127/61 95 Oxymask 2 12/09/23 09:10 36.4 C L 67 16 140/56 L 91 Oxymask 2 12/09/23 09:00 73 16 142/60 H 94 Oxymask 5 12/09/23 08:50 84 18 157/64 H 93 Oxymask 5 12/09/23 08:41 36.2 C L 88 14 166/68 H 95 Oxymask 5 12/09/23 05:58 36.7 C 87 20 204/72 H 95 Room Air Pain Intensity Right Knee: Pain Intensity: 2 Transfer of Care Handoff Completed per policy Notes Mental Status: alert / awake / arousable and participated in evaluation Patient Amnestic to Procedure: Yes Nausea / Vomiting: adequately controlled Pain: adequately controlled Airway Patency, RR, SpO2: see Notes below (pt had dyspnea, hypoxemia in SDSU. Given nebulized bronchodilator without significant improvement. Discussed w pt and surgeon who agreed to admit for supplemental O2, bronchodilators and observation. ) BP & HR: stable & adequate Hydration State: stable & adequate Anesthetic Complications: no major complications apparent
[2023-12-09] MEDS ORDERED: bisacodyL 10 MG SUPP PR PRN (13:29)
[2023-12-09] MEDS ORDERED: ALBUTEROL 0.083% NEBU SOLN 3 ML VIAL INH PRN (13:29)
[2023-12-09] MEDS ORDERED: MAGNESIUM HYDROXIDE SUSP 30 ML UDC PO PRN (13:29)
[2023-12-09] MEDS ORDERED: ALBUTEROL HFA 8 GM INHALER INH PRN (13:29)
[2023-12-09] MEDS ORDERED: NALOXONE HCL 0.4 MG/1 ML VIAL/CARP IV PRN (13:29)
[2023-12-09] MEDS ORDERED: FLUTICASONE PROPIONATE NA SPR 16 GM BTL NAE PRN (13:29)
[2023-12-09] MEDS ORDERED: METOCLOPRAMIDE HCL INJ 5 MG/ML 2 ML VIAL IV PRN (13:29)
[2023-12-09] MEDS ORDERED: HYDROmorphone INJ 1 MG/ML SYRINGE IV PRN (13:29)
[2023-12-09] MEDS ORDERED: NITROGLYCERIN SL 0.4 MG/TAB TAB SL PRN (13:29)
[2023-12-09] MEDS ORDERED: HYDROmorphone INJ 0.5 MG/0.5 ML SYR IV PRN (13:29)
[2023-12-09] MEDS: oxyCODONE HCL IR 5 MG TAB (IMMEDIATE RELEASE) PO PRN (13:53)
[2023-12-09] MEDS: SODIUM CHLORIDE 0.9% 1,000 ML IV SCH (13:54)
[2023-12-09] MEDS ORDERED: PHARMACY GLYCEMIC MGMT CONSULT PRN (14:40)
--- NOTE | 2023-12-09 14:40 | Orthopedic Progress Note ---
Date of Service December 09, 2023 Assessment & Plan (1) Postoperative hypoxia: Plan: Dr. Uriostegui was informed by anesthesia the patient was having postoperative hypoxia and dyspnea after surgery. They were unable to keep her saturation above 90% without oxygen use. They recommended admission and consultation with hospitalist for further treatment and evaluation. Dr. Uriostegui was in agreement to admit. Hospitalist consult was placed. Continue oxygen via nasal cannula. She was admitted to [facility] with telemetry. Will continue to monitor. (2) S/P right knee arthroscopy: Plan: Postop day 0-status post right knee arthroscopy, partial lateral medial meniscectomy, chondroplasty, synovectomy and right hip joint cortisone injection under fluoroscopic guidance with Dr. Uriostegui. She may be out of bed, weight-bear as tolerated with the assistance of a walker. He postoperative dressings intact. Reinforce as needed. Allowed for full range of motion to right knee as an right hip as tolerated. Encouraged gentle range of motion exercises while in bed as well as ankle pumps. Physical therapy and Occupational Therapy ordered. She may resume her Xarelto this evening for DVT prophylaxis. She is also using ROBERTA stockings and AV impulse boots while in house. Ice to right hip and knee as needed for pain and swelling. Elevate right lower extremity above heart to relieve pain and swelling. Home medications have been continued. Hospitalist consult was placed. Glycemic control consult placed for diet-controlled diabetes. Oxycodone and IV Dilaudid as needed for pain. Patient understands and agrees with the plan. Will reevaluate in the a.m. Admission and Anticipated Discharge Date Admission Date: December 09, 2023 Supervising Physician Co-Signing Physician Notes I, Dr. Uriostegui, saw and examined the patient. I discussed the management with my PA. I reviewed my PAs note and agree with the documented findings and attest to completing the substantive portion of medical decision making and plan of care I developed. Subjective Patient sitting up in bed, comfortable, does not feel short of breath, but mild chest tightness. She states that she feels ready for a "nebulizer treatment". She states that she is not surprised that we had to admit her after surgery. She states that this is "the worst its ever been" but she has had issues with hypoxia after previous procedures. She states that she does use oxygen at night. Physical Exam Musculoskeletal: Exam of right lower extremity: Postoperative dressings are clean, dry and intact. Band-Aid is in place over the right hip injection site. Full ankle dorsiflexion, plantarflexion, inversion and eversion and normal strength. Calf is supple and nontender. Distal sensation is normal. Capillary fill is brisk of the toes of her right leg. Tolerates logrolling of the right hip. Mild discomfort with any attempt at flexion of the knee. Results & Data Vital Signs (Past 12 Hours) Vital Signs Temp Pulse Resp BP Pulse Ox O2 Del Method O2 Flow Rate 12/09/23 14:30 Nasal Cannula 1 12/09/23 13:56 36.3 C L 85 18 162/68 H 91 Nasal Cannula 1 12/09/23 12:00 36.6 C 66 18 140/66 92 Nasal Cannula 2 12/09/23 11:29 67 18 92 Nasal Cannula 1 12/09/23 11:00 36.6 C 66 18 148/62 H 91 Nasal Cannula 1 12/09/23 10:30 36.6 C 69 18 148/62 H 92 Nasal Cannula 1 12/09/23 10:00 36.5 C 69 18 122/59 L 90 Room Air 12/09/23 09:50 68 16 119/48 L 90 Room Air 12/09/23 09:40 69 14 105/54 L 91 Room Air 12/09/23 09:30 65 17 121/60 96 Oxymask 2 12/09/23 09:20 71 17 127/61 95 Oxymask 2 12/09/23 09:10 36.4 C L 67 16 140/56 L 91 Oxymask 2 12/09/23 09:00 73 16 142/60 H 94 Oxymask 5 12/09/23 08:50 84 18 157/64 H 93 Oxymask 5 12/09/23 08:41 36.2 C L 88 14 166/68 H 95 Oxymask 5 12/09/23 05:58 36.7 C 87 20 204/72 H 95 Room Air Laboratory Results 12/09/23 12/09/23 Range/Units 10:02 05:52 POC Glucose 181 H 147 H (70-99) mg/dl
[2023-12-09] MEDS ORDERED: DEXTROSE 50% 50 ML SYRINGE IV PRN (15:00)
[2023-12-09] MEDS ORDERED: GLUCAGON FOR INJ 1 MG VIAL IM PRN (15:00)
[2023-12-09] MEDS ORDERED: GLUCOSE 10 TAB/TUBE PO PRN (15:00)
[2023-12-09] MEDS ORDERED: CARBOHYDRATES FOR HYPOGLYCEMIA PO PRN (15:00)
[2023-12-09] MEDS ORDERED: GLUCOSE 40% GEL 15 GM TUBE PO PRN (15:00)
[2023-12-09] MEDS: ACETAMINOPHEN 500 MG TAB PO SCH (15:15)
[2023-12-09] MEDS: LANTUS PER UNIT CHARGE SC ONE (17:57)
[2023-12-09] MEDS: INSULIN ASPART PER UNIT CHARGE SC SCH (17:57)
[2023-12-09] MEDS ORDERED: Nursing to Pharmacy Communication SCH (18:15)
--- NOTE | 2023-12-09 19:20 | Hospitalist Progress Note ---
Date of Service December 09, 2023 Assessment & Plan (1) Postoperative hypoxia: Plan: I suspect this predominantly her restrictive lung disease which is probably OHS/OSAfortunately while this seem to have been compounded by effects of anesthesia, she seems to be be rebounding nicelycontinue supportive care. Obviously she was not expecting to need to stay in the hospital overnight, will continue to monitor, can utilize hospital CPAP/BiPAP if needed tonight, but if her O2 sat stay reasonable, can hold off given that our devices tend to be much less comfortable. Continue as needed inhalersI do not see the need for corticosteroids as it relates to asthmaI even wonder if her asthma diagnosis is truly just a different manifestation of her restrictive lung disease/OHS. Extensive discussion on the critical need to follow through with CPAP at home. Continue to follow. Consider lung imaging if she does not show improvement back to baseline. Already anticoagulated with Xarelto, and clinically appears low likelihood of DVT PE. d/w Dr Uriostegui Admission and Anticipated Discharge Date Admission Date: December 09, 2023 Subjective Not really feeling short of breath, but is hypoxic. Was feeling somewhat short of breath earlier but seems to be feeling better now. Notes this has happened to her before whenever she is been under anesthesia where it is taking a while for her oxygen numbers to rebound, it is just that the swelling was worse. She notes that she has asthmabut notes that its only been diagnosed and may be the last 5 years, she takes some inhalers at home. She notes that she is needed to use her albuterol rescue inhaler about twice in the last 6-8 weeks so not very often, notes that her allergies are somewhat bad this time a year. Notes that she does have sleep apnea, is "pleasantly evasive" on answering how often she truly uses her CPAP, in some ways implying that she uses it nightly, and in some ways implying that she does not use that often because of power outage is and her cats. Review of Systems Review of Systems: All systems reviewed & are unremarkable except as noted in HPI & below Physical Exam Physical Exam: In general she is awake and alert pleasant no distress. Cardio is regular somewhat distant lungs are slightly diminished throughout no rales or rhonchi she has diffuse very faint wheeze a little bit more prevalent in the upper lung carrizales, no accessory muscle use. She is getting a nebulizer treatment whenever I see her, after the nebulizer treatment is done I put her back on 2 L nasal cannula and she is 93%. No conversational dyspnea no accessory muscle use. Skin without rashes pallor or icterus. Results & Data Results & Data Vital Signs (Past 12 Hours) Vital Signs Temp Pulse Pulse Resp BP Pulse Ox O2 Del Method 12/09/23 17:57 85 18 93 Nasal Cannula 12/09/23 15:32 97.5 F L 83 18 170/69 H 92 Room Air 12/09/23 14:44 73 12/09/23 14:30 Nasal Cannula 12/09/23 13:56 97.3 F L 85 18 162/68 H 91 Nasal Cannula 12/09/23 12:00 97.9 F 66 18 140/66 92 Nasal Cannula 12/09/23 11:29 67 18 92 Nasal Cannula 12/09/23 11:00 97.9 F 66 18 148/62 H 91 Nasal Cannula 12/09/23 10:30 97.9 F 69 18 148/62 H 92 Nasal Cannula 12/09/23 10:00 97.7 F 69 18 122/59 L 90 Room Air 12/09/23 09:50 68 16 119/48 L 90 Room Air 12/09/23 09:40 69 14 105/54 L 91 Room Air 12/09/23 09:30 65 17 121/60 96 Oxymask 12/09/23 09:20 71 17 127/61 95 Oxymask 12/09/23 09:10 97.5 F L 67 16 140/56 L 91 Oxymask 12/09/23 09:00 73 16 142/60 H 94 Oxymask 12/09/23 08:50 84 18 157/64 H 93 Oxymask 12/09/23 08:41 97.2 F L 88 14 166/68 H 95 Oxymask O2 Flow Rate 12/09/23 17:57 2 12/09/23 15:32 12/09/23 14:44 12/09/23 14:30 1 12/09/23 13:56 1 12/09/23 12:00 2 12/09/23 11:29 1 12/09/23 11:00 1 12/09/23 10:30 1 12/09/23 10:00 12/09/23 09:50 12/09/23 09:40 12/09/23 09:30 2 12/09/23 09:20 2 12/09/23 09:10 2 12/09/23 09:00 5 12/09/23 08:50 5 12/09/23 08:41 5 PG Care Time/CCT Total # of Minutes Spent Total Time Spent with Patient: Total time spent is greater than 50% in coordination of care (as documented) at patient's floor/unit and/or counseling patient: Coding Level of Care Code 72013 SUB INP/OBS CARE 3/50MIN Diagnoses Postoperative hypoxia R09.02; Z98.890
[2023-12-09] MEDS: BUDESONIDE 0.25 MG/2 ML VIAL (PULMICORT) INH SCH (20:43)
[2023-12-09] MEDS ORDERED: LANTUS PER UNIT CHARGE SC ONE (21:00)
[2023-12-09] MEDS: DOXAZosin MESYLATE TAB 2 MG TAB PO SCH (21:53)
[2023-12-09] MEDS: LEVOTHYROXINE SODIUM 125 MCG TABLET PO SCH (21:54)
[2023-12-09] MEDS: LOSARTAN POTASSIUM 50 MG TAB PO SCH (21:54)
[2023-12-09] MEDS: ISOSORBIDE MONO EXTENDED REL 60 MG TABCR PO SCH (21:54)
[2023-12-09] MEDS: METOPROLOL SUCC 25MG EXT REL TAB PO SCH (21:55)
[2023-12-09] MEDS: MONTELUKAST SODIUM 10 MG TABLET PO SCH (21:55)
[2023-12-09] MEDS: VERAPAMIL HCL 180 MG TABCR PO SCH (21:56)
[2023-12-09] MEDS: RIVAROXABAN 20 MG TAB PO SCH (21:56)
[2023-12-09] MEDS: DOCUSATE SODIUM 100 MG CAP PO SCH (22:10)
[2023-12-09] MEDS: LANTUS PER UNIT CHARGE SC SCH (22:30)
[2023-12-09] MEDS: PRAVASTATIN SOD 40 MG TAB PO SCH (23:57)
[2023-12-09] MEDS: PRAMIPEXOLE DIHYDROCHLO 0.25 MG TAB PO SCH (23:57)
[2023-12-10] MEDS: SENNA 8.6 MG TAB PO SCH (00:01)
[2023-12-10] MEDS: FORMOTEROL 20 MCG/2 ML VIAL INH SCH (07:16)
--- NOTE | 2023-12-10 07:44 | Orthopedic Progress Note ---
Date of Service December 10, 2023 Assessment & Plan (1) Postoperative hypoxia: Plan: Admitted to [facility] floor with telemetry. Hospitalist service input appreciated. Continue oxygen via nasal cannula. Continue Neb treatment Will continue to monitor. (2) S/P right knee arthroscopy: Plan: POD #1, s/p right knee arthroscopy, partial lateral medial meniscectomy, chondroplasty, synovectomy and right hip joint cortisone injection under fluoroscopic guidance She may be out of bed, weight-bear as tolerated with the assistance of a walker. He postoperative dressings intact. Reinforce as needed. Allowed for full range of motion to right knee as an right hip as tolerated. Encouraged gentle range of motion exercises while in bed as well as ankle pumps. Physical therapy and Occupational Therapy ordered. Resume Xarelto for DVT prophylaxis. She is also using ROBERTA stockings and SCDs while in house. Ice to right hip and knee as needed for pain and swelling. Elevate right lower extremity above heart to relieve pain and swelling. Home medications have been continued. Glycemic control consult placed for diet-controlled diabetes. Oxycodone and IV Dilaudid as needed for pain. Patient understands and agrees with the plan. Consider d/c home when medically stable Admission and Anticipated Discharge Date Admission Date: December 09, 2023 Subjective Feeling better, just had a neb treatment. Noting she was wheezing all night. Physical Exam Physical Exam: RLE: Dressing/Band Aide clean, dry, intact. Neurovascularly intact. Calf soft and non-tender. Results & Data Vital Signs (Past 12 Hours) Vital Signs Temp Pulse Pulse Pulse Resp BP Pulse Ox 12/10/23 07:37 36.7 C 78 16 110/50 L 94 12/10/23 07:18 56 L 18 93 12/10/23 04:28 12/10/23 03:26 36.9 C 61 18 107/61 92 12/09/23 23:15 36.9 C 87 18 145/66 H 93 12/09/23 22:07 94 H 12/09/23 20:43 83 18 95 O2 Del Method O2 Flow Rate 12/10/23 07:37 Nebulizer 12/10/23 07:18 Nasal Cannula 2 12/10/23 04:28 Nasal Cannula 2 12/10/23 03:26 Room Air 12/09/23 23:15 Nasal Cannula 2 12/09/23 22:07 12/09/23 20:43 Nasal Cannula 2 Laboratory Results 12/10/23 12/09/23 12/09/23 Range/Units 06:29 20:05 17:12 POC Glucose 253 H 234 H (70-99) mg/dl Estimat Average Glucose Pending Hemoglobin A1c Pending 12/09/23 Range/Units 10:02 POC Glucose 181 H (70-99) mg/dl Estimat Average Glucose Hemoglobin A1c
[2023-12-10 07:55] LABS: Estimated Average Glucose 148 mg/dl; Hemoglobin A1C 6.8 % (4.5-5.6)
[2023-12-10] MEDS: MULTIVITAMIN TAB PO SCH (08:23)
[2023-12-10] MEDS: CHOLECALCIFEROL 125 MCG (5,000 UNITS) TAB PO SCH (08:23)
[2023-12-10] MEDS: VITAMIN B COMPLEX TAB PO SCH (08:23)
--- NOTE | 2023-12-10 12:37 | Discharge Summary ---
Date of Service December 10, 2023 Discharge Data Consultations 12/09/23 11:58 Consult Hospitalist Routine Procedures Performed Operation Date: 12/09/23 07:00 Actual Procedures p Right Knee Arthroscopy, Chondroplasty, Medial and Lateral meniscectomy, Synovectomy,(Left) - Ross Uriostegui MD s Right Hip Cortisone Injection (Left) - Ross Uriostegui MD Hospital Course (1) S/P right knee arthroscopy: See below. (2) Postoperative hypoxia: Patient underwent a right knee arthroscopy, right hip cortisone injection with Dr. Uriostegui on December 09, 2023. After surgery she developed postoperative hypoxia and dyspnea. She could not maintain saturation of oxygen above 90%. Anesthesia discussed with Dr. Uriostegui and recommended admission and hospitalist consultation for further evaluation. She does have chronic lung disease and is on oxygen at nighttime. She also has obstructive sleep apnea. Due to this she was kept in observation at [facility]. She was admitted on Dr. Uriostegui service with a hospitalist consultation. Her home medications were continued. Her Xarelto was resumed on December 09, 2023 and will suffice as DVT prophylaxis. She was given AV impulse boots and ROBERTA stockings as well. With regards to her surgery this was performed with general anesthesia. She tolerated the procedure well without any intraoperative complications. She was allowed out of bed, weight-bear as tolerated with the assistance of a walker on her right lower extremity. She was allowed full range of motion of the right leg. Physical therapy and Occupational Therapy consults were placed to evaluate during her inpatient stay. Her pain was controlled with oxycodone, IV Dilaudid and oral Tylenol. On postoperative day 0 she did not have a significant amount of pain in her right knee. This morning on postoperative day 1 she does have some increased right knee pain especially when ambulating or just sitting and trying to move her knee. She was encouraged to do bedside exercises. She was medically cleared for discharge to her home with her oxygen use at night, inhalers with no additional need for corticosteroids. Close follow-up with her family physician. She will follow-up on Friday as scheduled for dressing change. She has Xarelto at home as well as oxycodone for postoperative pain control. She was instructed to call our office with any questions or concerns. Discharge instructions were reviewed. She is to leave her postoperative dressings in place until her follow-up appointment. She understands and agrees with the plan and was discharged to her home in stable condition with family on December 10, 2023.
--- NOTE | 2023-12-10 17:08 | Hospitalist Progress Note ---
Date of Service December 10, 2023 Assessment & Plan (1) Postoperative hypoxia: Plan: I suspect this predominantly her restrictive lung disease which is probably OHS/OSAfortunately while this seem to have been compounded by effects of anesthesia, she seems to Have rebounded nicely. Appears safe/stable for home. Extensive discussion yet again on the critical need to use her CPAP. Close outpatient follow-up with PCP. Admission and Anticipated Discharge Date Admission Date: December 09, 2023 Subjective breathing doing better. Feels up to going home. Family present. Discussed sleep apnea and treatment with patient again, and with family. Answered all questions to the best my ability. Review of Systems Review of Systems: All systems reviewed & are unremarkable except as noted in HPI & below Physical Exam Physical Exam: In general she is awake and alert pleasant no distress. HEENT normocephalic atraumatic mucous membranes moist. Breathing unlabored no accessory muscle use good effort. Skin shows no rashes no pallor or icterus. Neuro without focal deficits. Results & Data Results & Data Vital Signs (Past 12 Hours) Vital Signs Temp Pulse Pulse Pulse Resp BP BP 12/10/23 10:42 98.1 F 83 78 16 155/68 H 110/50 L 12/10/23 09:51 12/10/23 09:51 49 L 12/10/23 07:37 98.1 F 78 16 110/50 L 12/10/23 07:18 56 L 18 Pulse Ox O2 Del Method O2 Flow Rate 12/10/23 10:42 94 12/10/23 09:51 Nasal Cannula 2 12/10/23 09:51 12/10/23 07:37 94 Nebulizer 12/10/23 07:18 93 Nasal Cannula 2 PG Care Time/CCT Total # of Minutes Spent Total Time Spent with Patient: Total time spent is greater than 50% in coordination of care (as documented) at patient's floor/unit and/or counseling patient: Coding Level of Care Code 85579 SUB INP/OBS CARE 2/35MIN Diagnoses Postoperative hypoxia R09.02; Z98.890
== END 2023-12-10 13:51 | disposition home or self-care (01) ==
LOC: ASU 05:29 → INTOOBSV 11:58 → 2N 11:58